=== PATIENT | female | born 1940 | race Caucasian/White ===

== ENCOUNTER 2019-05-19 07:55 | Emergency (ER) | payer MEDICARE, OTHER, SELFPAY ==
[2019-05-19 08:00] VITALS: BP 168/64; PULSE 68; RESP 12; TEMP 36.7; O2SAT 99; BMI 25.1
--- NOTE | 2019-05-19 08:15 | DI.RAD.S_ITS ---
PROCEDURE: XR RIBS RT MIN 3V W CXR 1V INDICATIONS: fall with Right sided rib pain TECHNIQUE: 3 views of the right ribs were acquired, along with a single view chest. COMPARISON: None. FINDINGS: Surgical changes and devices: None. Bones and chest wall: Right lateral seventh and eighth rib fractures with minimal displacement are noted. No suspicious bony lesions. Overlying soft tissues appear unremarkable. Lungs and pleura: Minimal right and minimal to mild left effusions. Mediastinum: Mediastinal contours appear normal. Heart size is normal. IMPRESSION: Minimally displaced right lateral seventh and eighth rib fractures. Minimal to mild bilateral effusions. Dictated by: Rubi Rosa M.D. on 05/19/2019 at 8:31 Approved by: Rubi Rosa M.D. on 05/19/2019 at 8:32
--- NOTE | 2019-05-19 08:23 | ED_ITS ---
HPI - Syncope General Chief Complaint: Syncope Stated Complaint: taken a fall maybe a broken rib R side in house Time Seen by Provider: 05/19/19 08:00 Source: patient and family Mode of arrival: Ambulatory Limitations: no limitations History of Present Illness HPI narrative: 78-year-old female former smoker presents with her and a chief complaint of right-sided rib pain since a fall on Wednesday. She states it hurts worse when she moves and takes a deep breath and improves with rest. She denies any shortness of breath or hemoptysis. She states that she fell when standing at the refrigerator and she turned her head to go the other way. She denies syncope in has full recall of the event but does not know why she fell. The was in the next room and heard the event and was at her side almost immediately, by the time he arrived she was awake alert and oriented and complaining of right-sided rib pain She denies other injuries such as head neck or back pain. She denies any ongoing symptoms such as shortness of breath, dizziness, weakness or lightheadedness. She denies any dietary or medication change. Her pain has been largely controlled with Motrin which she most recently took this morning at 5:30 a.m.. complaint: collapsed Onset (ago): day(s) -: second(s) Prodromal symptoms: none Injuries sustained associated with event: chest Current symptoms: chest pain Treatments prior to arrival: none Related Data Previous Rx's Medication Instructions Recorded hydrocodone-acetaminophen 0 tab PO Q6HP PRN #15 tab 09/12/17 hydrocodone-acetaminophen 1 tab PO Q4-6H PRN #10 tab 05/19/19 Allergies Allergy/AdvReac Type Severity Reaction Status Date / Time Sulfa (Sulfonamide Allergy Intermediate Hives Verified 05/19/19 08:13 Antibiotics) Review of Systems Constitutional Constitutional: Denies chills, Denies fatigue, Denies fever(s), Denies frequent falls, Denies lethargy and Denies weakness Eyes Eyes: Denies change in vision, Denies eye discharge, Denies irritation and Denies loss of vision ENT Ears, Nose, Mouth, and Throat: Denies change in voice, Denies dizziness, Denies neck pain, Denies sore throat and Denies throat swelling Cardiovascular Cardiovascular: Reports chest pain, Denies irregular heart rhythm, Denies lightheadedness, Denies palpitations, Denies dyspnea, Denies dyspnea on exertion and Denies orthopnea Respiratory Respiratory: Denies cough, Denies dyspnea, Denies dyspnea on exertion and Denies wheezing Gastrointestinal Gastrointestinal: Denies abdominal pain, Denies change in bowel habits, Denies diarrhea, Denies nausea and Denies vomiting Genitourinary Genitourinary: Denies hematuria, Denies flank pain, Denies urinary incontinence and Denies urinary urgency Musculoskeletal Musculoskeletal: Denies back pain, Denies muscle weakness, Denies neck pain, Denies numbness and Denies tingling Integumentary/Breasts Skin/Breast: Denies pruritus, Denies erythema, Denies rash and Denies wounds Neurologic Neurologic: Denies behavioral changes, Denies confusion, Denies dizziness, Denies frequent falls, Denies loss of vision, Denies numbness, Denies tingling and Denies weakness Psychiatric Psychiatric: Denies anxiety, Denies behavioral changes, Denies confusion, Denies depression, Denies homicidal ideation and Denies suicidal ideation Endocrine Endocrine: Denies fatigue, Denies flushing and Denies palpitations Hematologic/Lymphatic Hematologic/Lymphatic: Denies easy bruising Allergic/Immunologic Allergic/Immunologic: Denies urticaria, Denies throat swelling and Denies wheezing Patient History Social History Smoking Status: Former smoker alcohol intake frequency: 0-2 drinks per day Substance Use Type: does not use Exam Narrative Exam Narrative: GENERAL: [78] year old patient appears stated age. Well-nourished, well-developed patient, in mild distress. HEAD: Atraumatic. Normocephalic. EYES: Pupils equal round and reactive. Extraocular motions intact. No scleral icterus. No injection or drainage. ENT: Nose without bleeding, purulent drainage. Throat without erythema, tonsillar hypertrophy or exudate. Airway patent. NECK: Trachea midline. Non tender CARDIOVASCULAR: Right-sided rib pain with palpation Regular rate and rhythm without murmurs, gallops, or rubs. RESPIRATORY: Clear to auscultation. Breath sounds equal bilaterally. No wheezes, rales, or rhonchi. GASTROINTESTINAL: Abdomen soft, non-tender, nondistended. EXTREMITIES: No edema or joint tenderness. BACK: Nontender without deformity or crepitance. No flank tenderness. NEURO: AOx3. SKIN: No rash or erythema of visible areas Initial Vital Signs Initial Vital Signs: Vital Signs Temperature 98.1 F 05/19/19 08:00 Pulse Rate 68 05/19/19 08:00 Respiratory Rate 12 05/19/19 08:00 Blood Pressure 168/64 H 05/19/19 08:00 Pulse Oximetry 99 05/19/19 08:00 Course Orders Ordered: ED Orders 05/19/19 09:10 B Type Natriuretic Peptide Stat Complete Blood Count AUTO DIFF Stat Comprehensive Metabolic Panel Stat Magnesium Stat Troponin & CK Cardiac Panel Stat Discontinued Medications Sodium Chloride (Normal Saline 0.9%) 1,000 mls @ 150 mls/hr IV CONT RAMÓN Last Infusion: 05/19/19 10:33 Dose: 0 mls/hr Documented by: Admin: 05/19/19 09:21 Dose: 150 mls/hr Documented by: ANDREW Vital Signs Vital signs: Vital Signs - 8 hr 05/19/19 10:15 Pulse Rate 68 Respiratory Rate 16 Blood Pressure [Left Arm] 158/59 H Pulse Oximetry 96 MDM - Syncope Lab Data Result diagrams: 05/19/19 09:10 05/19/19 09:10 Labs: Lab Results 05/19/19 05/19/19 Range/Units 09:10 09:10 WBC 7.1 (4.5-11.0) X10^3/uL RBC 4.46 (4.0-5.2) X10^6/uL Hgb 13.2 (12.0-16.0) g/dL Hct 39.2 (36-46) % MCV 87.8 (80-100) fL MCH 29.6 (26-34) PG MCHC 33.7 (30-36) % RDW 13.7 (11.6-14.8) % Plt Count 224 (150-400) X10^3/uL Neut % (Auto) 78.7 H (50-75) % Lymph % (Auto) 14.6 L (25-40) % [place] % (Auto) 5.5 (3-14) % Eos % (Auto) 0.9 L (2-4) % Baso % (Auto) 0.3 (0-2) % Neut # (Auto) 5600 (3717-8102) /uL Lymph # (Auto) 1000 L (7088-8650) /uL [place] # (Auto) 400 (0-900) /uL Eos # (Auto) 100 (0-450) /uL Baso # (Auto) 0 (0-100) /uL Sodium 142 (137-145) mmol/L Potassium 4.5 (3.4-5.1) mmol/L Chloride 107 (98-107) mmol/L Carbon Dioxide 28 (22-32) mmol/L BUN 29 H (7-17) mg/dL Creatinine 1.10 H (0.52-1.04) mg/dL Estimated GFR 48.2 L (>60) mL/min BUN/Creatinine Ratio 26.4 H (6-22) Glucose 100 (80-110) mg/dL Calcium 9.5 (8.4-10.2) mg/dL Magnesium 2.2 (1.6-2.3) mg/dL Total Bilirubin 0.7 (0.2-1.3) mg/dL AST 32 (14-36) IU/L ALT 20 (<35) IU/L Alkaline Phosphatase 95 (38-126) U/L Total Creatine Kinase 45 (30-135) U/L CK-MB (CK-2) TNP CK-MB (CK-2) Rel Index TNP Troponin I < 0.012 (0.01-0.034) ng/mL B-Natriuretic Peptide < 100 (<100) Total Protein 7.1 (6.3-8.2) g/dL Albumin 4.4 (3.5-5.0) g/dL Globulin 2.7 (1.7-4.1) g/dL Albumin/Globulin Ratio 1.6 (1.0-2.8) Point of Care Testing Glucose POC 99 Imaging Data Chest x-ray: Radiologist's impression: [address] [address] XRay Report Signed Patient: Yaa Brandon AMR#: [id number] : 2Acct:[id number] Age/Sex: 78 / FDate of Service: 05/19/19 Loc: ED Accession Number: [id number] Procedure: XR ribs RT min 3V w CXR1V Ordering Provider: Alex Mallory D.O. PROCEDURE: XR RIBS RT MIN 3V W CXR 1V INDICATIONS: fall with Right sided rib pain TECHNIQUE: 3 views of the right ribs were acquired, along with a single view chest. COMPARISON: None. FINDINGS: Surgical changes and devices: None. Bones and chest wall: Right lateral seventh and eighth rib fractures with minimal displacement are noted. No suspicious bony lesions. Overlying soft tissues appear unremarkable. Lungs and pleura: Minimal right and minimal to mild left effusions. Mediastinum: Mediastinal contours appear normal. Heart size is normal. IMPRESSION: Minimally displaced right lateral seventh and eighth rib fractures. Minimal to mild bilateral effusions. Dictated by: Rubi Rosa M.D. on 05/19/2019 at 8:31 Approved by: Rubi Rosa M.D. on 05/19/2019 at 8:32 ECG Data Attestation: I personally reviewed and interpreted this ECG as follows: Prior ECG tracings: not available for review Interpretation: EKG is normal sinus rhythm rate [64 ] and free of any signs of ischemia or ectopy. No ST segmental elevation or depression. No T wave inversions Discharge Plan Departure Patient Disposition: Home Clinical Impression: Multiple rib fractures Qualifiers: Encounter type: initial encounter Fracture type: closed Laterality: right Qualified Code(s): S22.41XA - Multiple fractures of ribs, right side, initial encounter for closed fracture Discharge Date/Time: 05/19/19 10:40 Instructions: DI for Rib Fracture Activity Restrictions/Additional Instructions: *You have been diagnosed with [fall with right-sided rib fracture] *What to do: *Take medications as directed *Follow up with your primary care provider in 2-3 days, call for an appointment. Let them know you were seen in the Emergency Department and that we ask that you be seen in follow up *Return to ER if you should have any new, worsening or concerning symptoms You have been prescribed narcotic medications. While on these medications you cannot drive or operate heavy machinery. Additionally you cannot sign legal documents or perform any duties such as this. 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 Please understand that we cannot provide further refills of narcotics or controlled substances through the ED and your pain management will need to be through your Primary Care Provider Prescriptions: New hydrocodone-acetaminophen 5-325 mg tablet 1 tab PO Q4-6H PRN (Reason: pain) Qty: 10 RF: 0 No Action hydrocodone-acetaminophen 5 MG/325 MG tablet 0 tab PO Q6HP PRNQty: 15 RF: 0
[2019-05-19 09:00] VITALS: BP 142/63; PULSE 62; RESP 15; O2SAT 98
[2019-05-19 09:10] VITALS: BP 155/61; PULSE 60; RESP 15; O2SAT 98
[2019-05-19 09:18] LABS: Add Manual Diff / Slide Review NO; Basophils Absolute Auto 0 /uL (0-100); Basophils Percent Auto 0.3 % (0-2); Eosinophils Absolute Auto 100 /uL (0-450); Eosinophils Percent Auto 0.9 % (2-4); Hematocrit 39.2 % (36-46); Hemoglobin 13.2 g/dL (12.0-16.0); Lymphocytes Absolute Auto 1000 /uL (1100-4500); Lymphocytes Percent Auto 14.6 % (25-40); Mean Corpuscular HGB Conc 33.7 % (30-36); Mean Corpuscular Hemoglobin 29.6 PG (26-34); Mean Corpuscular Volume 87.8 fL (80-100); Monocytes Absolute Auto 400 /uL (0-900); Monocytes Percent Auto 5.5 % (3-14); Neutrophils Absolute Auto 5600 /uL (1500-7000); Neutrophils Percent Auto 78.7 % (50-75); Platelet Count 224 X10^3/uL (150-400); Red Blood Cell Count 4.46 X10^6/uL (4.0-5.2); Red Cell Distribution Width 13.7 % (11.6-14.8); White Blood Cell Count 7.1 X10^3/uL (4.5-11.0)
[2019-05-19] MEDS: SODIUM CHLORIDE 0.9% 1,000 ML 150 ML IV (09:21)
[2019-05-19 09:38] LABS: Alanine Aminotransferase 20 IU/L (<35); Albumin 4.4 g/dL (3.5-5.0); Albumin Globulin Ratio 1.6 (1.0-2.8); Alkaline Phosphatase 95 U/L (38-126); Aspartate Aminotransferase 32 IU/L (14-36); BUN Creatinine Ratio 26.4 (6-22); Bilirubin Total 0.7 mg/dL (0.2-1.3); Blood Urea Nitrogen 29 mg/dL (7-17); Calcium 9.5 mg/dL (8.4-10.2); Carbon Dioxide 28 mmol/L (22-32); Chloride 107 mmol/L (98-107); Creatine Kinase 45 U/L (30-135); Estimated Glomerular Filt Rate 48.2 mL/min (>60); Globulin 2.7 g/dL (1.7-4.1); Glucose 100 mg/dL (80-110); HEMOLYSIS < 15 (0-50); Magnesium 2.2 mg/dL (1.6-2.3); Potassium 4.5 mmol/L (3.4-5.1); Sodium 142 mmol/L (137-145); Total Protein 7.1 g/dL (6.3-8.2)
[2019-05-19 09:39] LABS: B Type Natriuretic Peptide < 100 (<100)
[2019-05-19 09:49] LABS: Troponin I < 0.012 ng/mL (0.01-0.034)
[2019-05-19 10:15] VITALS: BP 158/59; PULSE 68; RESP 16; O2SAT 96
== END 2019-05-19 10:40 | disposition home or self-care (01) ==
PROVIDERS: Emergency Provider Emergency Medicine
DX: S22.41XA Multiple fractures of ribs, right side, initial encounter for closed fracture (principal); W18.30XA Fall on same level, unspecified, initial encounter
CPT/HCPCS: 36415; 71101; 80053; 82550; 82962; 83735; 83880; 84484; 85025; 93005; 96360; 99283; 99285

== ENCOUNTER → 2020-08-07 15:15 | Outpatient (CLI) | payer MEDICARE, SELFPAY ==
[2020-08-07] MEDS: COVID-19 VACC #1, MRNA(MOD) 100 MCG/0.5 ML VIAL IM (15:23)
== END ==
PROVIDERS: Visit Provider Internal Medicine
DX: Z23 Encounter for immunization (principal)
CPT/HCPCS: 0011A; 91301

== ENCOUNTER → 2020-09-05 15:19 | Outpatient (CLI) | payer MEDICARE, SELFPAY ==
[2020-09-05] MEDS: COVID-19 VACC #2, MRNA(MOD) 100 MCG/0.5 ML VIAL IM (15:25)
== END ==
PROVIDERS: Visit Provider Internal Medicine
DX: Z23 Encounter for immunization (principal)
CPT/HCPCS: 0012A; 91301

== ENCOUNTER 2021-04-19 20:58 | Emergency (ER) | payer MEDICARE, SELFPAY ==
[2021-04-19 21:14] VITALS: BP 191/79; PULSE 73; O2SAT 97
[2021-04-19 21:36] LABS: COVID19 -Nasal RAPID Negative (Negative)
--- NOTE | 2021-04-20 06:04 | ED_ITS ---
HPI - Recheck/Abnormal Lab/Rx General Chief Complaint: Recheck/Abnormal Lab/Rx Stated Complaint: Covid test, patient-cov+ Time Seen by Provider: 04/19/21 21:10 Source: patient Mode of arrival: Ambulatory Limitations: no limitations History of Present Illness HPI narrative: 80-year-old female nonsmoker with noncontributory medical exam presents requesting a COVID test. Her was here earlier is had 4 days of widespread symptoms consistent with COVID, his test was positive. She has been immunized but is asymptomatic. She denies any headache or blurred vision. She denies any runny nose, sore throat or cough. She has no chest pain or shortness of breath. She denies abdominal pain or nausea, vomiting or diarrhea. Related Data Previous Rx's Medication Instructions Recorded hydrocodone 5 mg-acetaminophen 325 0 tab PO Q6HP PRN #15 tab 09/12/ mg tablet hydrocodone 5 mg-acetaminophen 325 1 tab PO Q4-6H PRN #10 tab 05/19/ mg tablet erythromycin 5 mg/gram (0.5 %) eye 1 applic OPHTHALMIC (EYE) Q6H #3.5 01/03/21 ointment g Allergies Allergy/AdvReac Type Severity Reaction Status Date / Time Sulfa (Sulfonamide Allergy Intermediate Hives Verified 04/19/21 21:17 Antibiotics) Review of Systems Review of Systems Narrative: GENERAL: Denies chills, fatigue, malaise, fever, sweats. HEENT: Denies sinus pain, ear pain, sore throat, difficulty swallowing, dizziness. RESPIRATORY: Denies dyspnea, cough, wheezing, hemoptysis, sputum. CARDIOVASCULAR: Denies chest pain, palpitations, orthopnea, edema, GASTROINTESTINAL: Denies nausea, vomiting, abdominal pain, diarrhea, constipation, melena. : Denies dysuria, frequency, incontinence, hematuria, urinary retention. MUSCULOSKELETAL: denies weakness, joint pain, or bony pain SKIN: Denies rash, skin lesions, or other NEUROLOGIC: Denies weakness, headache, numbness, change in speech, confusion, seizures, incoordination. PSYCHIATRIC: No concerning psychosocial issues. 12 point review of systems is negative except for those stated above Patient History Medical History No active medical problems Social History Smoking Status: Former smoker Smoking Status: Former smoker alcohol intake frequency: 0-2 drinks per day Substance Use Type: does not use Exam Narrative Exam Narrative: GEN: AOx3 and in mild distress EYES: Pupils are equal, round, and reactive to light and accommodation. Extraoccular muscles are intact bilaterally. There is no subconjunctival hemorrhage or exudate. CHEST: Lungs are clear to auscultation bilaterally and free of wheezes, rales, or rhonchi. Heart rate is regular rhythm, there are no murmurs, clicks, rubs, or gallops. There is no chest wall tenderness. ABD: Abdomen is soft and nontender. There is no guarding or rebound. Bowel sounds are normal in all 4 quadrants. There is no mass or organomegaly. EXT: Full painless ROM of all extremities with no loss of sensation or strength. SKIN: Warm, pink, and dry. No erythema or rash Initial Vital Signs Initial Vital Signs: Vital Signs Pulse Rate 73 04/19/21 21:14 Blood Pressure 191/79 H 04/19/21 21:14 Pulse Oximetry 97 04/19/21 21:14 Course Orders Ordered: ED Orders 04/19/21 21:10 COVID19 -Nasal swab/Pre-Proc Stat MDM - Recheck/Abnormal Lab/Rx Lab Data Labs: Lab Results 04/19/21 Range/Units 21:10 SARS-CoV-2 (PCR) Negative (Negative) Discharge Plan Departure Patient Disposition: Home Clinical Impression: Close exposure to COVID-19 virus Instructions: COVID-19 Viral Test Activity Restrictions/Additional Instructions: *You have been diagnosed with [close exposure to COVID-19, presumptive positive. As we discussed I will call you with results tonight *What to do: * per recommendations from the CDC and the [facility] Department of Health * stay home except to get medical care. Restrict activities outside your home, except for getting medical care. Do not go to work, school, or public areas. Avoid using public transportation, ride sharing, or taxis. * separate yourself from other people in your home. * call ahead before visiting your doctor * Wear a facemask * Cover your coughs and sneezes * Clean your hands often * Avoid sharing household items * Clean all high-touch services every day * Monitor your symptoms and seek prompt medical attention if your illness is worsening, particularly with difficulty in breathing. You may discontinue your isolation when: 1. You have been fever-free for at least 24 hours without the use of fever reducing medication, AND 2. Your symptoms are getting better 3. At least 10 days have passed since symptoms first appeared Individuals with laboratory confirmed COVID-19 who have not had any symptoms may discontinue home isolation when at least 10 days have passed since the date of their first COVID-19 diagnostic test and have had no subsequent illness Prescriptions: No Action erythromycin 5 mg/gram (0.5 %) ointment 1 applic ophthalmic (eye) Q6H Qty: 3.5 RF: 2 hydrocodone-acetaminophen 5 MG/325 MG tablet 0 tab PO Q6HP PRNQty: 15 RF: 0 hydrocodone-acetaminophen 5-325 mg tablet 1 tab PO Q4-6H PRN (Reason: pain) Qty: 10 RF: 0 Referrals: Miscellaneous,Doctor, [Primary Care Provider] -
== END 2021-04-19 21:20 | disposition home or self-care (01) ==
PROVIDERS: Emergency Provider Emergency Medicine
DX: Z20.822 Contact with and (suspected) exposure to COVID-19 (principal)
CPT/HCPCS: 87635; 99281; C9803

== ENCOUNTER → 2021-05-09 11:38 | Outpatient (CLI) | payer MEDICARE, OTHER, SELFPAY ==
[2021-05-09] MEDS: COVID-19 VACC #3, MRNA(MOD) 50 MCG/0.25 ML VIAL IM (11:52)
== END ==
PROVIDERS: Visit Provider Internal Medicine
DX: Z23 Encounter for immunization (principal)
CPT/HCPCS: 0013A; 91301

== ENCOUNTER 2021-12-19 10:42 | Emergency (ER) | payer MEDICARE, OTHER, SELFPAY ==
[2021-12-19] VITALS (25 sets, daily range): BP systolic 157–207; BP diastolic 69–118; PULSE 53–72; RESP 15–24; TEMP 36.9; O2SAT 97–99
--- NOTE | 2021-12-19 10:52 | DI.RAD.S_ITS ---
PROCEDURE: XR CHEST 1V INDICATIONS: chest pain TECHNIQUE: One view of the chest was acquired. COMPARISON: None. FINDINGS: Surgical changes and devices: None. Lungs and pleura: There is minimal blunting of the left costophrenic angle. No right-sided pleural effusion. No pneumothorax is seen. Mediastinum: Mediastinal contours appear normal. Heart size is normal. Atherosclerotic calcification of the aortic arch is noted. Bones and chest wall: Age-appropriate bony degenerative changes are seen. No suspicious bony lesions. Overlying soft tissues appear unremarkable. IMPRESSION: There is minimal blunting of the left costophrenic angle. Please consider a small pleural effusion versus atelectasis. A mild amount of infiltrate is also possible, yet considered to be less likely. Dictated by: Stephen Choi M.D. on 12/19/2021 at 10:22 Approved by: Stephen Choi M.D. on 12/19/2021 at 10:23
[2021-12-19 11:05] LABS: Add Manual Diff / Slide Review NO; Basophils Absolute Auto 0 /uL (0-100); Basophils Percent Auto 0.4 % (0-2); Eosinophils Absolute Auto 100 /uL (0-450); Eosinophils Percent Auto 0.9 % (2-4); Hematocrit 42.4 % (36-46); Hemoglobin 14.4 g/dL (12.0-16.0); Lymphocytes Absolute Auto 1300 /uL (1100-4500); Lymphocytes Percent Auto 15.8 % (25-40); Mean Corpuscular HGB Conc 33.8 % (30-36); Mean Corpuscular Volume 85.7 fL (80-100); Monocytes Absolute Auto 400 /uL (0-900); Monocytes Percent Auto 5.1 % (3-14); Neutrophils Absolute Auto 6300 /uL (1500-7000); Neutrophils Percent Auto 77.8 % (50-75); Platelet Count 225 X10^3/uL (150-400); Red Blood Cell Count 4.95 X10^6/uL (4.0-5.2); Red Cell Distribution Width 14.2 % (11.6-14.8); White Blood Cell Count 8.1 X10^3/uL (4.5-11.0)
[2021-12-19 11:24] LABS: Alanine Aminotransferase 25 IU/L (<35); Alkaline Phosphatase 83 U/L (38-126); Aspartate Aminotransferase 40 IU/L (14-36); BUN Creatinine Ratio 23.1 (6-22); Bilirubin Total 0.9 mg/dL (0.2-1.3); Blood Urea Nitrogen 21 mg/dL (7-17); Calcium 8.9 mg/dL (8.4-10.2); Carbon Dioxide 26 mmol/L (22-32); Chloride 104 mmol/L (98-107); Estimated Glomerular Filt Rate > 60 mL/min (>60); Glucose 105 mg/dL (80-110); Magnesium 2.1 mg/dL (1.6-2.3); Potassium 4.4 mmol/L (3.4-5.1); Sodium 138 mmol/L (137-145)
[2021-12-19 11:25] LABS: Albumin 4.5 g/dL (3.5-5.0); Albumin Globulin Ratio 1.4 (1.0-2.8); Creatine Kinase 126 U/L (30-135); Globulin 3.2 g/dL (1.7-4.1); HEMOLYSIS < 15 (0-50); Lipase 198 U/L (23-300); Total Protein 7.7 g/dL (6.3-8.2); Troponin I < 0.012 ng/mL (0.01-0.034)
[2021-12-19 11:26] LABS: Creatine Kinase MB 2.58 ng/mL (<2.37)
--- NOTE | 2021-12-19 12:11 | PC.NURSE ---
Reports feeling dizzy this morning with nausea and one episode of vomiting. BP at home was elevated at that time. Reports dizziness resolved now. Was able to walk to the bathroom without issue in ED. Did not take her BP med Losartan 100mg tab this morning due to the nausea.
--- NOTE | 2021-12-19 14:05 | ED.DIZZY ---
HPI - Dizziness <JEREMY Flor - Last Filed: 12/19/21 17:04> General Chief Complaint: Dizziness Stated Complaint: Weak & dizzy Time Seen by Provider: 12/19/21 13:53 History of Present Illness HPI Narrative: This is an 81-year-old female who presents to the emergency department complaining of dizziness when she woke up this morning. She states that she drink a large glass of water, had an episode of emesis, checked her blood pressure and saw that it was over 200 systolic and left [facility] to come to the emergency department. Patient states that she does not know what her normal blood pressure is, she did not know that she takes losartan for her blood pressure, she denies any history of a cardiac event in the past, she is not on any anticoagulants, her medication list was updated. She states that her primary care provider is at [facility] and her name is Carine Evi. She states that she lives in [place] and would like to find a primary care provider here. She denies any chest pain, shortness of breath, diaphoresis, abdominal pain, and denies any history of this in the past. She denies any sore throat, cough, or other symptom. She states that her nausea has improved. She states that she did not take any of her medications this morning because this episode of dizziness came on when she got up. She states that she has multiple family members in [facility] [address] and has been under stress. Related Data Home Medications Medication Instructions Recorded Confirmed alendronate 70 mg tablet 1 tab PO QWEEK 12/19/21 12/19/21 aspirin 81 mg tablet,delayed 81 mg PO DAILY 12/19/21 12/19/21 release (Adult Low Dose Aspirin) atorvastatin 40 mg tablet 40 mg PO BEDTIME 12/19/21 12/19/21 losartan 100 mg tablet 100 mg PO QAM 12/19/21 12/19/21 omeprazole 20 mg capsule,delayed 20 mg PO DAILY 12/19/21 12/19/21 release trazodone 50 mg tablet 50 mg PO BEDTIME PRN Sleep 12/19/21 12/19/21 Allergies Allergy/AdvReac Type Severity Reaction Status Date / Time Sulfa (Sulfonamide Allergy Intermediate Hives Verified 04/19/21 21:17 Antibiotics) Review of Systems <JEREMY Flor - Last Filed: 12/19/21 17:04> Review of Systems Narrative: General: denies fever, chills, malaise, sweats, fatigue Head/Neck: denies headache, neck pain, endorses significant dizziness when she woke up, states that it has improved since then. Eyes: denies visual changes, eye pain Cardio: denies chest pain, palpitations, edema Respiratory: denies dyspnea, cough, orthopnea GI: denies abdominal pain, nausea, vomiting, or diarrhea : denies dysuria, hematuria, urinary retention, frequency or incontinence MSK: denies joint pain, muscle weakness Skin: denies rash, itching, skin lesions or other Neuro: denies numbness, tingling Patient History <JEREMY Flor - Last Filed: 12/19/21 17:04> Medical History No active medical problems Social History Smoking Status: Former smoker Smoking Status: Former smoker alcohol intake frequency: 0-2 drinks per day Substance Use Type: does not use Exam <JEREMY Flor - Last Filed: 12/19/21 17:04> Narrative Exam Narrative: Independently reviewed vitals signs and nursing notes. General: cooperative, comfortable, in no acute distress, well groomed Head: atraumatic, symmetrical facial expressions Neck: supple Eyes: equal round and reactive, EOMI, conjunctiva normal Nose: nares patent, no rhinorrhea Mouth/Throat: moist mucus membranes Cardiovascular: regular rate and rhythm, no peripheral edema, warm extremities Respiratory: normal effort, able to speak in complete sentences, no audible wheezing, stridor, or rales. No retractions or tachypnea. GI: abdomen soft, nontender to palpation, nondistended, no masses, no exquisite tenderness with exam, without guarding or rebound. MSK: moves all extremities, neurovascularly intact, no weakness, normal tone Skin: brisk capillary refill, no rash, no erythema Neuro: normal speech and cognition, A&O x3 Psych: mental status is grossly normal, congruent mood, normal affect, pleasant and cooperative Initial Vital Signs Initial Vital Signs: Vital Signs Blood Pressure 200/83 H 12/19/21 10:45 <Lizzy Finley DO - Last Filed: 12/21/21 12:33> Initial Vital Signs Initial Vital Signs: Vital Signs Blood Pressure 200/83 H 12/19/21 10:45 Scores <JEREMY Flor - Last Filed: 12/19/21 17:04> HEART Score Heart Score history: Slightly Suspicious Heart Score EKG: Normal Heart Score Age: > or = 65 years old Heart Score risk factors: 1-2 risk factors Heart Score troponin: < or = to normal limit Heart Score Total: 3 <Lizzy Finley DO - Last Filed: 12/21/21 12:33> HEART Score Heart Score Total: 3 Course <JEREMY Flor - Last Filed: 12/19/21 17:04> Orders Ordered: Discontinued Medications Aspirin (Aspirin Ec 81 Mg Tablet) 81 mg PO NOW ONE Stop: 12/19/21 14:06 Last Admin: 12/19/21 14:34 Dose: 81 mg Documented By: LIZ Atorvastatin Calcium (Atorvastatin 20 Mg Tablet) 40 mg PO NOW ONE Stop: 12/19/21 14:06 Last Admin: 12/19/21 14:35 Dose: 40 mg Documented By: LIZ Losartan Potassium (Losartan 50 Mg Tablet) 100 mg PO NOW ONE Stop: 12/19/21 14:05 Last Admin: 12/19/21 14:37 Dose: 100 mg Documented By: LIZ Vital Signs Vital signs: Vital Signs - 8 hr 12/19/21 11:22 12/19/21 10:45 12/19/21 10:46 Temperature 98.4 F Pulse Rate 62 64 Respiratory Rate 16 Blood Pressure 200/83 H 200/83 H Pulse Oximetry 97 97 Oxygen Delivery Method Room Air 12/19/21 10:49 12/19/21 10:49 12/19/21 11:00 Temperature Pulse Rate 62 61 Respiratory Rate 20 24 Blood Pressure 200/75 H Pulse Oximetry 97 97 Oxygen Delivery Method 12/19/21 11:30 12/19/21 11:42 12/19/21 11:42 Temperature Pulse Rate 61 63 Respiratory Rate 24 18 Blood Pressure 199/77 H Pulse Oximetry 98 98 Oxygen Delivery Method 12/19/21 11:45 12/19/21 11:45 12/19/21 11:48 Temperature Pulse Rate 70 64 Respiratory Rate 21 24 Blood Pressure 207/118 H Pulse Oximetry 99 99 Oxygen Delivery Method 12/19/21 11:48 12/19/21 12:00 12/19/21 12:16 Temperature Pulse Rate 58 L 65 Respiratory Rate 24 24 Blood Pressure 199/84 H Pulse Oximetry 98 98 Oxygen Delivery Method 12/19/21 12:16 12/19/21 12:30 12/19/21 12:30 Temperature Pulse Rate 57 L Respiratory Rate 19 Blood Pressure 178/74 H 165/72 H Pulse Oximetry 98 Oxygen Delivery Method 12/19/21 12:45 12/19/21 12:45 12/19/21 13:00 Temperature Pulse Rate 53 L Respiratory Rate 22 Blood Pressure 160/69 H 157/108 H Pulse Oximetry 98 Oxygen Delivery Method 12/19/21 13:00 12/19/21 14:37 12/19/21 13:15 Temperature Pulse Rate 69 65 59 L Respiratory Rate 24 24 Blood Pressure 205/81 H Pulse Oximetry 98 Oxygen Delivery Method 12/19/21 13:15 12/19/21 13:30 12/19/21 13:30 Temperature Pulse Rate 58 L Respiratory Rate 22 Blood Pressure 178/106 H 181/79 H Pulse Oximetry 98 Oxygen Delivery Method 12/19/21 13:45 12/19/21 13:45 12/19/21 14:00 Temperature Pulse Rate 59 L Respiratory Rate 22 Blood Pressure 192/79 H 201/86 H Pulse Oximetry 97 Oxygen Delivery Method 12/19/21 14:00 12/19/21 14:15 12/19/21 14:15 Temperature Pulse Rate 72 60 Respiratory Rate 22 20 Blood Pressure 188/79 H Pulse Oximetry 98 98 Oxygen Delivery Method 12/19/21 14:30 12/19/21 14:30 12/19/21 14:45 Temperature Pulse Rate 71 59 L Respiratory Rate 20 18 Blood Pressure 205/81 H Pulse Oximetry Oxygen Delivery Method 12/19/21 14:45 12/19/21 15:00 12/19/21 15:00 Temperature Pulse Rate 58 L Respiratory Rate 15 Blood Pressure 181/76 H 174/70 H Pulse Oximetry Oxygen Delivery Method 12/19/21 15:15 12/19/21 15:15 12/19/21 15:30 Temperature Pulse Rate 56 L Respiratory Rate 20 Blood Pressure 165/70 H 163/70 H Pulse Oximetry Oxygen Delivery Method 12/19/21 15:30 Temperature Pulse Rate 59 L Respiratory Rate 22 Blood Pressure Pulse Oximetry Oxygen Delivery Method <Lizzy Finley, - Last Filed: 12/21/21 12:33> Orders Ordered: Discontinued Medications Aspirin (Aspirin Ec 81 Mg Tablet) 81 mg PO NOW ONE Stop: 12/19/21 14:06 Last Admin: 12/19/21 14:34 Dose: 81 mg Documented By: LIZ Atorvastatin Calcium (Atorvastatin 20 Mg Tablet) 40 mg PO NOW ONE Stop: 12/19/21 14:06 Last Admin: 12/19/21 14:35 Dose: 40 mg Documented By: LIZ Losartan Potassium (Losartan 50 Mg Tablet) 100 mg PO NOW ONE Stop: 12/19/21 14:05 Last Admin: 12/19/21 14:37 Dose: 100 mg Documented By: LIZ Vital Signs Vital signs: Vital Signs - 8 hr 12/19/21 11:22 12/19/21 10:45 12/19/21 10:46 Temperature 98.4 F Pulse Rate 62 64 Respiratory Rate 16 Blood Pressure 200/83 H 200/83 H Pulse Oximetry 97 97 Oxygen Delivery Method Room Air 12/19/21 10:49 12/19/21 10:49 12/19/21 11:00 Temperature Pulse Rate 62 61 Respiratory Rate 20 24 Blood Pressure 200/75 H Pulse Oximetry 97 97 Oxygen Delivery Method 12/19/21 11:30 12/19/21 11:42 12/19/21 11:42 Temperature Pulse Rate 61 63 Respiratory Rate 24 18 Blood Pressure 199/77 H Pulse Oximetry 98 98 Oxygen Delivery Method 12/19/21 11:45 12/19/21 11:45 12/19/21 11:48 Temperature Pulse Rate 70 64 Respiratory Rate 21 24 Blood Pressure 207/118 H Pulse Oximetry 99 99 Oxygen Delivery Method 12/19/21 11:48 12/19/21 12:00 12/19/21 12:16 Temperature Pulse Rate 58 L 65 Respiratory Rate 24 24 Blood Pressure 199/84 H Pulse Oximetry 98 98 Oxygen Delivery Method 12/19/21 12:16 12/19/21 12:30 12/19/21 12:30 Temperature Pulse Rate 57 L Respiratory Rate 19 Blood Pressure 178/74 H 165/72 H Pulse Oximetry 98 Oxygen Delivery Method 12/19/21 12:45 12/19/21 12:45 12/19/21 13:00 Temperature Pulse Rate 53 L Respiratory Rate 22 Blood Pressure 160/69 H 157/108 H Pulse Oximetry 98 Oxygen Delivery Method 12/19/21 13:00 12/19/21 14:37 12/19/21 13:15 Temperature Pulse Rate 69 65 59 L Respiratory Rate 24 24 Blood Pressure 205/81 H Pulse Oximetry 98 Oxygen Delivery Method 12/19/21 13:15 12/19/21 13:30 12/19/21 13:30 Temperature Pulse Rate 58 L Respiratory Rate 22 Blood Pressure 178/106 H 181/79 H Pulse Oximetry 98 Oxygen Delivery Method 12/19/21 13:45 12/19/21 13:45 12/19/21 14:00 Temperature Pulse Rate 59 L Respiratory Rate 22 Blood Pressure 192/79 H 201/86 H Pulse Oximetry 97 Oxygen Delivery Method 12/19/21 14:00 12/19/21 14:15 12/19/21 14:15 Temperature Pulse Rate 72 60 Respiratory Rate 22 20 Blood Pressure 188/79 H Pulse Oximetry 98 98 Oxygen Delivery Method 12/19/21 14:30 12/19/21 14:30 12/19/21 14:45 Temperature Pulse Rate 71 59 L Respiratory Rate 20 18 Blood Pressure 205/81 H Pulse Oximetry Oxygen Delivery Method 12/19/21 14:45 12/19/21 15:00 12/19/21 15:00 Temperature Pulse Rate 58 L Respiratory Rate 15 Blood Pressure 181/76 H 174/70 H Pulse Oximetry Oxygen Delivery Method 12/19/21 15:15 12/19/21 15:15 12/19/21 15:30 Temperature Pulse Rate 56 L Respiratory Rate 20 Blood Pressure 165/70 H 163/70 H Pulse Oximetry Oxygen Delivery Method 12/19/21 15:30 Temperature Pulse Rate 59 L Respiratory Rate 22 Blood Pressure Pulse Oximetry Oxygen Delivery Method MDM - Dizziness <JEREMY Flor - Last Filed: 12/19/21 17:04> Lab Data Result diagrams: 12/19/21 10:46 12/19/21 10:46 Labs: Lab Results 12/19/21 12/19/21 12/19/21 Range/Units 10:46 10:46 10:46 WBC 8.1 (4.5-11.0) X10^3/uL RBC 4.95 (4.0-5.2) X10^6/uL Hgb 14.4 (12.0-16.0) g/dL Hct 42.4 (36-46) % MCV 85.7 (80-100) fL MCH 29.0 (26-34) PG MCHC 33.8 (30-36) % RDW 14.2 (11.6-14.8) % Plt Count 225 (150-400) X10^3/uL Neut % (Auto) 77.8 H (50-75) % Lymph % (Auto) 15.8 L (25-40) % [place] % (Auto) 5.1 (3-14) % Eos % (Auto) 0.9 L (2-4) % Baso % (Auto) 0.4 (0-2) % Neut # (Auto) 6300 (0570-5874) /uL Lymph # (Auto) 1300 (4225-3356) /uL [place] # (Auto) 400 (0-900) /uL Eos # (Auto) 100 (0-450) /uL Baso # (Auto) 0 (0-100) /uL Sodium 138 (137-145) mmol/L Potassium 4.4 (3.4-5.1) mmol/L Chloride 104 (98-107) mmol/L Carbon Dioxide 26 (22-32) mmol/L BUN 21 H (7-17) mg/dL Creatinine 0.91 (0.52-1.04) mg/dL Estimated GFR > 60 (>60) mL/min BUN/Creatinine Ratio 23.1 H (6-22) Glucose 105 (80-110) mg/dL Calcium 8.9 (8.4-10.2) mg/dL Magnesium 2.1 (1.6-2.3) mg/dL Total Bilirubin 0.9 (0.2-1.3) mg/dL AST 40 H (14-36) IU/L ALT 25 (<35) IU/L Alkaline Phosphatase 83 (38-126) U/L Total Creatine Kinase 126 (30-135) U/L CK-MB (CK-2) 2.58 H (<2.37) ng/mL CK-MB (CK-2) Rel Index 2.0 (1.5-5.0) % Troponin I < 0.012 (0.01-0.034) ng/mL NT-Pro-B Natriuret Pep 228 (<450) pg/mL Total Protein 7.7 (6.3-8.2) g/dL Albumin 4.5 (3.5-5.0) g/dL Globulin 3.2 (1.7-4.1) g/dL Albumin/Globulin Ratio 1.4 (1.0-2.8) Lipase 198 (23-300) U/L Urine Dip Bedside Urine Glucose Negative Bedside Urine Bilirubin - Negative Bedside Urine Ketone - Negative Urine Specific [place] 1.010 Bedside Urine Occult Blood - Negative Bedside Urine pH 6.0 Bedside Urine Protein - Negative Bedside Urine Urobilinogen - Negative Bedside Urine Nitrite - Negative Bedside Urine Leukocytes - Negative Esterase Imaging Data Chest x-ray: Radiologist's Impression: PROCEDURE:? XR CHEST 1V ? INDICATIONS:? chest pain ? TECHNIQUE:? One view of the chest was acquired.? ? COMPARISON:? None. ? FINDINGS:? ? Surgical changes and devices:? None.? ? Lungs and pleura:? There is minimal blunting of the left costophrenic angle.? No right-sided pleural effusion.? No pneumothorax is seen. ? ? Mediastinum:? Mediastinal contours appear normal.? Heart size is normal.? Atherosclerotic calcification of the aortic arch is noted.? ? Bones and chest wall:? Age-appropriate bony degenerative changes are seen.? No suspicious bony lesions.? Overlying soft tissues appear unremarkable.? ? ? IMPRESSION:? There is minimal blunting of the left costophrenic angle.? Please consider a small pleural effusion versus atelectasis.? A mild amount of infiltrate is also possible, yet considered to be less likely.? ? Dictated by: Stephen Choi M.D. on 12/19/2021 at 10:22 ? ? Approved by: Stephen Choi M.D. on 12/19/2021 at 10:23 ? ECG Data Interpretation: EKG independently reviewed by myself and Dr. Finley which reveals normal sinus rhythm at 59 bpm with regular axis and intervals. No STEMI, ST segment changes, arrhythmia, or acute ischemic changes. MDM Narrative Medical decision making narrative: This is an 81-year-old female with past medical history of hypertension, GERD, hyperlipidemia who presents to the emergency department complaining of dizziness when she woke up this morning, hypertension at home during her dizziness episode, one episode of emesis, and she took the [facility] to the emergency department. Patient does not have any history of cardiac events, has not had any blood clots, takes 81 mg of aspirin daily. She is on 100 mg daily losartan, has not taken it yet today, she was given this dose in the emergency department along with her other medications excluding trazodone and omeprazole for hypertension with systolics in the 210s. Patient did not have any chest pain, shortness of breath, orthopnea, or other systemic symptom other than her dizziness at home which has improved since then. She is tolerating p.o., her blood pressure came down to the low 160 systolic, she is in sinus rhythm without ectopy or arrhythmia, no ST changes, her troponin is negative. No leukocytosis, creatinine is below her baseline 0.91, baseline was 1.1, CK-MB was slightly elevated at 2.58. Patient endorses stress over the last few days with family in town and she has physically exerted herself recently without adequate hydration. She is tolerating p.o. now, chest x-ray shows minimal blunting of the left costophrenic angle with a small pleural effusion versus atelectasis. A mild amount of infiltrate is also possible yet considered to be less likely. Patient does not have any shortness of breath, tachypnea, orthopnea, or respiratory symptoms. Her BNP is 228. Encouragedpatient to follow-up closely with her primary care provider Dr. Steve from [facility] regarding her hypertensive episode today. Multiple causes of hypertension considered including MD, PE, pneumothorax, pneumonia, aortic dissection, and pleurisy. Patient reports no radiation, no diaphoresis, no provocation with exertion, and no vomiting. Patient is appropriate and amenable to discharge home. Vital signs are stable on repeat examination is unremarkable. Patient has been informed of results. Patient has been given strict return to ER precautions for any new or worsening symptoms. Patient understands to follow up closely with outpatient providers as instructed. Patient understands plan and agrees to discharge home. All questions and concerns answered at this time. <Lizzy Finley, DO - Last Filed: 12/21/21 12:33> Lab Data Labs: Lab Results 12/19/21 12/19/21 12/19/21 Range/Units 10:46 10:46 10:46 WBC 8.1 (4.5-11.0) X10^3/uL RBC 4.95 (4.0-5.2) X10^6/uL Hgb 14.4 (12.0-16.0) g/dL Hct 42.4 (36-46) % MCV 85.7 (80-100) fL MCH 29.0 (26-34) PG MCHC 33.8 (30-36) % RDW 14.2 (11.6-14.8) % Plt Count 225 (150-400) X10^3/uL Neut % (Auto) 77.8 H (50-75) % Lymph % (Auto) 15.8 L (25-40) % [place] % (Auto) 5.1 (3-14) % Eos % (Auto) 0.9 L (2-4) % Baso % (Auto) 0.4 (0-2) % Neut # (Auto) 6300 (8688-1162) /uL Lymph # (Auto) 1300 (5130-9217) /uL [place] # (Auto) 400 (0-900) /uL Eos # (Auto) 100 (0-450) /uL Baso # (Auto) 0 (0-100) /uL Sodium 138 (137-145) mmol/L Potassium 4.4 (3.4-5.1) mmol/L Chloride 104 (98-107) mmol/L Carbon Dioxide 26 (22-32) mmol/L BUN 21 H (7-17) mg/dL Creatinine 0.91 (0.52-1.04) mg/dL Estimated GFR > 60 (>60) mL/min BUN/Creatinine Ratio 23.1 H (6-22) Glucose 105 (80-110) mg/dL Calcium 8.9 (8.4-10.2) mg/dL Magnesium 2.1 (1.6-2.3) mg/dL Total Bilirubin 0.9 (0.2-1.3) mg/dL AST 40 H (14-36) IU/L ALT 25 (<35) IU/L Alkaline Phosphatase 83 (38-126) U/L Total Creatine Kinase 126 (30-135) U/L CK-MB (CK-2) 2.58 H (<2.37) ng/mL CK-MB (CK-2) Rel Index 2.0 (1.5-5.0) % Troponin I < 0.012 (0.01-0.034) ng/mL NT-Pro-B Natriuret Pep 228 (<450) pg/mL Total Protein 7.7 (6.3-8.2) g/dL Albumin 4.5 (3.5-5.0) g/dL Globulin 3.2 (1.7-4.1) g/dL Albumin/Globulin Ratio 1.4 (1.0-2.8) Lipase 198 (23-300) U/L Urine Dip Bedside Urine Glucose Negative Bedside Urine Bilirubin - Negative Bedside Urine Ketone - Negative Urine Specific [place] 1.010 Bedside Urine Occult Blood - Negative Bedside Urine pH 6.0 Bedside Urine Protein - Negative Bedside Urine Urobilinogen - Negative Bedside Urine Nitrite - Negative Bedside Urine Leukocytes - Negative Esterase ECG Data Attestation: I personally reviewed and interpreted this ECG as follows: Interpretation: EKG independently reviewed by myself and Dr. Finley which reveals normal sinus rhythm at 59 bpm with regular axis and intervals. No STEMI, ST segment changes, arrhythmia, or acute ischemic changes. Malia: Sinus rhythm rate of 50 9p are 160 QRS a 68, QTC of 407. No acute ST elevation depression appreciated. Patient has prior from 05/19/2019 which appears similar. Discharge Plan Departure Patient Disposition: Home Clinical Impression: Hypertension Qualifiers: Hypertension type: unspecified Qualified Code(s): I10 - Essential (primary) hypertension Instructions: Essential Hypertension, DI for Dizziness-Nonvertigo Activity Restrictions/Additional Instructions: *You have been diagnosed with dizziness likely caused by acute hypertension. Your blood pressure was significantly high today, multiple blood pressures were over 200 systolic. I have given you your normal medications today Emergency Department, and this is brought your blood pressure down to a safe level which should be fine to stay at until you follow-up with Dr. Steve. There is a phone number listed below in bold to call to make an appointment with one of our primary care providers. Please do so and get on the list. Please take your medication as it is prescribed, 1st thing in the morning take your omeprazole, wait 30 minutes at least and then take your other medications including her blood pressure medication. You are on a fairly high dose of losartan, I presume that you need it. Please continue to try and stay hydrated, it looks like you are slightly dehydrated today, and likely have exerted yourself physically in the days preceding. Please continue on a low-sodium diet if you are not on one currently, try to keep caffeine consumption to a low and enjoy some relaxing activities to help create a calm environment. There are no signs of cardiac ischemia or concern for a cardiac event on your workup today. *What to do: *Please continue to take your regular medications as directed. [ ] New medication prescriptions sent to your pharmacy: [ ] [ ] New medication written as a paper prescription [x ] No new medications given *Please follow up with your primary care provider in 2-3 days, call for an appointment. Let them know you were seen in the Emergency Department and that we asked that you be seen for follow-up. We will electronically transmit a record of today's note if your PCP is in our system *If you do not have a primary care provider please contact [phone] to establish care with one of the [facility] primary care providers. *Return to Emergency Department if you should have any new, worsening or concerning symptoms, such as [fever greater than 101F, chills, worsening pain, persistent vomiting or other bothersome symptoms] Prescriptions: No Action atorvastatin 40 mg tablet 40 mg PO BEDTIME trazodone 50 mg Tablet 50 mg PO BEDTIME PRN (Reason: Sleep) alendronate 70 mg tablet 1 tab PO QWEEK aspirin [Adult Low Dose Aspirin] 81 mg Tablet,Delayed Release (Dr/Ec) 81 mg PO DAILY omeprazole 20 mg Capsule,Delayed Release(Dr/Ec) 20 mg PO DAILY losartan 100 mg tablet 100 mg PO QAM Referrals: Carine Steve MD [Primary Care Provider] - Visit Report Forms: Patient Portal/API <Lizzy Finley DO - Last Filed: 12/21/21 12:33> [facility] Attending Adalgisaature Attestation: I was immediately available in the department for consultation. Documentation has been reviewed.
[2021-12-19] MEDS: ASPIRIN EC 81 MG TABLET PO (14:34)
[2021-12-19] MEDS: ATORVASTATIN 20 MG TABLET 40 MG PO (14:35)
[2021-12-19] MEDS: LOSARTAN 50 MG TABLET 100 MG PO (14:37)
[2021-12-19 16:57] LABS: NT-proBNP (BNP-Adult 18+) 228 pg/mL (<450)
== END 2021-12-19 15:56 | disposition home or self-care (01) ==
PROVIDERS: Emergency Medicine; Emergency Provider Nurse Practitioner Critical Care Medicine; PCP Internal Medicine
DX: I10 Essential (primary) hypertension (principal); R07.9 Chest pain, unspecified; R79.89 Other specified abnormal findings of blood chemistry
CPT/HCPCS: 36415; 71045; 80053; 81003; 82550; 82553; 83690; 83735; 83880; 84484; 85025; 93005; 93010; 99283; 99284

== ENCOUNTER → 2022-11-30 10:21 | Outpatient (CLI) | payer MEDICARE, OTHER, SELFPAY ==
[2022-11-30 11:15] LABS: Influenza A - CEPHEID Flu A NEGATIVE (NEGATIVE); Influenza B - CEPHEID Flu B NEGATIVE (NEGATIVE); Respiratory Syncytial Virus Negative (Negative)
[2022-11-30 11:20] LABS: COVID-19 CEPHEID 4-PLEX PCR POSITIVE (Negative)
== END ==
PROVIDERS: PCP Internal Medicine; Visit Provider Student in an Organized Health Care Education/Training Program
DX: J06.9 Acute upper respiratory infection, unspecified (principal)
CPT/HCPCS: 0241U